=== PATIENT | female | born 1985 | race African-American/Black ===

== ENCOUNTER 2016-05-04 04:40 | Emergency (ER) | payer MEDICARE | END 2016-05-04 05:38 | disposition home or self-care (01) | LOC: D.ER 04:40 | DX: J02.9 Acute pharyngitis, unspecified (principal); J40 Bronchitis, not specified as acute or chronic; R11.10 Vomiting, unspecified; F41.9 Anxiety disorder, unspecified ==

== ENCOUNTER 2016-06-29 22:27 | Emergency (ER) | payer MEDICARE | END 2016-06-29 22:47 | disposition home or self-care (01) | LOC: D.ER 22:27 | DX: F41.0 Panic disorder [episodic paroxysmal anxiety] (principal) ==

== ENCOUNTER 2017-11-09 09:32 | Emergency (ER) | payer MEDICARE ==
[~2017-11-09] VITALS: Ht 165.1 cm; Wt 154.5 kg
[2017-11-09 09:36] VITALS: Ht 165.1 cm; Wt 154.5 kg
[2017-11-09 12:13] VITALS: BP 139/76
== END 2017-11-09 12:14 | disposition home or self-care (01) ==
LOC: D.ER 09:32
DX: F43.0 Acute stress reaction (principal)

== ENCOUNTER 2017-12-09 10:53 | Emergency (ER) | payer MEDICARE ==
[~2017-12-09] VITALS: Ht 165.1 cm; Wt 150.0 kg
[2017-12-09 11:03] VITALS: Ht 165.1 cm; Wt 150.0 kg
[2017-12-09] MEDS ORDERED: OCUFLOX 0.3 % OP5 ML LEFT EYE (14:36)
[2017-12-09] MEDS ORDERED: PREDNISONE10 MG PO (14:36)
[2017-12-09] MEDS ORDERED: AMOXICILLIN875 MG PO (14:36)
[2017-12-09 15:00] VITALS: BP 101/60
== END 2017-12-09 15:01 | disposition home or self-care (01) ==
LOC: D.ER 10:53
DX: H10.12 Acute atopic conjunctivitis, left eye (principal); F43.10 Post-traumatic stress disorder, unspecified; F41.1 Generalized anxiety disorder

== ENCOUNTER 2018-01-30 16:47 | Inpatient (IN) | payer MEDICARE ==
[~2018-01-30] VITALS: Ht 165.1 cm; Wt 65.6 kg
[~2018-01-30 16:47] MED LIST: AMOXICILLIN875 MG PO; OCUFLOX 0.3 % OP5 ML LEFT EYE; PREDNISONE10 MG PO
[2018-01-30] MEDS ORDERED: VENTOLIN HFA18 GM INH (16:51)
[2018-01-30 17:35] LABS: BASOPHILS 0.3 % (0-2); EOSINOPHILS 5.4 % (0-7); HEMATOCRIT 40.3 % (36.0-48.0); IMMATURE GRANULOCYTES 0.1 % (0-5); LYMPHOCYTES 31.1 % (15-50); MCH 27.4 pg (26.0-34.0); MCHC 32.3 g/dL (31.0-37.0); MCV 84.8 fL (80.0-100.0); MEAN PLATELET VOLUME 10.3 fL (7.4-10.4); NEUTROPHILS 58.1 % (40-80); PLATELET COUNT 261 10x3/uL (130-400); RBC 4.75 10x6/uL (4.00-5.40); RDW 15.1 % (11.5-14.5)
[2018-01-30 17:43] LABS: APTT 27.3 SECONDS (22.8-39.4); INR 0.92 (0.85-1.17); PROTIME 11.9 SECONDS (11.6-15.0)
[2018-01-30 17:58] LABS: ALBUMIN 3.5 g/dL (3.4-5.0); ALKALINE PHOSPHATASE 55 U/L (46-116); ALT (SGPT) 26 U/L (10-68); BILIRUBIN - TOTAL 0.16 mg/dL (0.2-1.3); CALC OSMOLALITY 278 mosm/kg (275-300); CALCIUM 8.2 mg/dL (8.5-10.1); CARBON DIOXIDE 28.1 mmol/L (21.0-32.0); CHLORIDE - SERUM 103 mmol/L (98-107); CREATININE - SERUM 0.7 mg/dL (0.6-1.3); GLUCOSE 115 mg/dL (74-106); POTASSIUM - SERUM 3.3 mmol/L (3.5-5.1); PROTEIN - SERUM 7.9 g/dL (6.4-8.2); SODIUM 140 mmol/L (136-145); UREA NITROGEN 9 mg/dL (7-18); eGFR NON AFRICAN AMERICAN > 90 mL/min (90-120)
[2018-01-30 18:10] LABS: CKMB 0.8 U/L (0.0-3.6); CREATINE KINASE 155 UL (21-215); PRO BNP 18 pg/mL (0-125); TROPONIN-I < 0.017 ng/mL (0.000-0.060)
[2018-01-30 19:19] VITALS: BP 155/77
[2018-01-30 22:31] VITALS: BP 148/57; Ht 165.1 cm; Wt 65.6 kg
[2018-01-31 02:01] VITALS: BP 148/57
[2018-01-31 05:42] VITALS: BP 132/73
[2018-01-31 08:02] VITALS: BP 121/83
[2018-01-31 10:49] VITALS: BP 129/76
[2018-01-31 15:42] VITALS: BP 116/73
[2018-01-31 20:00] VITALS: BP 131/70
[2018-02-01] VITALS: BP 128/82
[2018-02-01 05:23] VITALS: BP 130/63
[2018-02-01 07:09] LABS: CALC OSMOLALITY 278 mosm/kg (275-300); CALCIUM 8.9 mg/dL (8.5-10.1); CARBON DIOXIDE 21.8 mmol/L (21.0-32.0); CHLORIDE - SERUM 103 mmol/L (98-107); CREATININE - SERUM 0.8 mg/dL (0.6-1.3); GLUCOSE 190 mg/dL (74-106); POTASSIUM - SERUM 4.3 mmol/L (3.5-5.1); SODIUM 137 mmol/L (136-145); UREA NITROGEN 12 mg/dL (7-18); eGFR NON AFRICAN AMERICAN 87 mL/min (90-120)
[2018-02-01 08:33] VITALS: BP 132/81
--- NOTE | 2018-02-01 11:25 | HP ---
PATIENT: SY RODRIGUEZ V MEDICAL RECORD: [id number] ACCOUNT: [id number] LOCATION:[address] : [birth year] ADMISSION DATE: 01/30/18 PCP: No PCP HISTORY AND PHYSICAL EXAMINATION REASON FOR ADMISSION: Shortness of breath and burning in her chest pain. HISTORY OF PRESENT ILLNESS: The patient is a 32-year-old -[place] female who is a student at [employer]. She states had history of childhood asthma and usually a Proventil inhaler handles her symptoms. That has been prescribed by Dr. Grimes at [employer]. She said she felt well until a few days ago and she developed some increasing cough. Her sputum was initially clear, became thicker and drained yesterday. She has not had fever, but had a coughing episode yesterday, which she thought she could not catch her breath. She was brought by EMS to the hospital for that reason. She was evaluated in the ED, was tachycardic with a heart rate in the 160s. Chest x-rays showed question of interstitial edema versus early pneumonia and she has been admitted to the hospital. PAST HISTORY: Childhood asthma. She was hospitalized a child, but none as an adult, history of anxiety and panic syndrome, but she does not take any medications for history of depression. PAST SURGICAL HISTORY: times 1, tonsillectomy, and PE tubes in her ears. FAMILY HISTORY: Mother with diabetes. Natural father's health is unknown. SOCIAL HISTORY: Socially, she has one child. 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 HOME MEDICATIONS: Proventil HFA 1-2 puffs t.i.d. p.r.n. ALLERGIES: ADHESIVE TAPE AND HEMP OIL REVIEW OF SYSTEMS: GENERAL: Generally, denies fatigue until today. No fever. HEENT: No recent visual change, sinus congestion, sore throat, or hearing difficulty. RESPIRATORY: Increasing cough, congestion, and shortness of breath starting the last 3 days, precipitating shortness of breath and near syncope. No hemoptysis. No adult hospitalization for respiratory issues, she states. CARDIAC: No palpitation, PND, orthopnea, chest pain, or edema. GASTROINTESTINAL: No nausea, vomiting, change in stools, blood per rectum, or fatty food intolerance. Has had a colonoscopy in the past that she said was normal. GENITOURINARY: No dysuria or incontinence. GYNECOLOGIC: No abnormal vaginal bleeding. ENDOCRINE: Denies polyuria, polydipsia, heat or cold intolerance. NEUROLOGIC: No history of stroke, TIA, vascular headaches, or seizures. PSYCHIATRIC: Admits to history of panic syndrome and depression in the past, she said that she handles it with behavior modification. PHYSICAL EXAMINATION: GENERAL: Alert, obese 32-year-old black female at this time, in no acute HISTORY AND PHYSICAL [id number] MICHAEL,SY V distress. Temperature 97; heart rate is 140, now 116; respiratory rate was 19; blood pressure 132/73 with a sat of 95%. HEENT: Normocephalic. Eyes are clear. Throat mild erythema. Tonsils are absent. NECK: No adenopathy. Chest expiratory wheezes bilaterally without rales or retractions. HEART: Tachycardic without murmur. ABDOMEN: Morbidly obese, soft, nontender. EXTREMITIES: 2+ pretibial edema bilaterally. NEUROLOGICAL: Oriented to person, place, and time. Cranial nerves intact. Gait is normal. LABORATORY DATA: Labs shows a white count of 12,000, H&H of 13 and 40. ABG: pH of 7.4, pCO2 is 43.9, pO2 is 83 on room air. Potassium was low at 3.4; glucose 115, nonfasting. INR was 0.92. Influenza A and B both negative. Chest x-ray was interpreted and pulmonary vascular mildly prominent. ASSESSMENT: Exacerbation of asthma, tachycardia, obesity, history of anxiety. The patient will be admitted for pulmonary toilet, IV antibiotics. Serial chest x-ray. Further workup pending clinical course. TRANSINT:[id number] Voice Confirmation ID: [id number] DOCUMENT ID: [id number] MADISON BRADEN MD at 1125 CC: [id number] DICTATION DATE: 01/31/18726 SNATH HANDLE ASSEMBLER: 01/31/18 09 ADM IN [place] [id number] [place] [address]
[2018-02-01 12:05] VITALS: BP 124/80
[2018-02-01 15:52] VITALS: BP 119/75
[2018-02-01 20:50] VITALS: BP 154/81
[2018-02-02 01:30] VITALS: BP 132/75
[2018-02-02 06:14] VITALS: BP 130/70
[2018-02-02 08:21] VITALS: BP 134/71
[2018-02-02] MEDS ORDERED: PEPCID PO (08:53)
[2018-02-02] MEDS ORDERED: MUCINEX DM ER1 EAC1 PO (08:55)
[2018-02-02] MEDS ORDERED: ZITHROMAX250 MG PO (08:55)
[2018-02-02] MEDS ORDERED: MEDROL DOSE PACK4 MG PO (08:55)
--- NOTE | 2018-02-04 11:22 | MORECARE ---
CASE MANAGEMENT DISCHARGE SUMMARY PATIENT: SY RODRIGUEZ V UNIT: [id number] ADM DATE: 01/30/18 AGE: 32 : 83 SEX: F ROOM/BED: D.2130 AUTHOR: MAY ARANGO PHYSICIAN: REFERRING PHYSICIAN: MADISON BRADEN MD DATE OF SERVICE: 02/04/18 Discharge Plan Patient Name: SY RODRIGUEZ Facility: [facility]:[place] : 1985 Planned Disposition: Home Anticipated Discharge Date: 02/02/18 Discharge Date: 02/02/2018 Expected LOS: 3 Initial Reviewer: [email or web address] Initial Review Date: 02/04/2018 Generated: 02/04/18 12:22 pm Patient Name: SY RODRIGUEZ Page [id number] at 1122 All edits/amendments must be made on the electronic document DICTATION DATE: 02/04/18 112 CHECK PILOT: MALENA 02/04/18 1122 RPT#: [id number] DC DATE:02/02/18 STATUS: DIS IN [facility] [address] [place] [address] END OF REPORT
== END 2018-02-02 11:15 | disposition home or self-care (01) | DRG 202 ==
LOC: D.ER 16:47 → D.M2 19:51
PROVIDERS: Family Medicine; ADMIT Family Medicine
DX: J45.901 Unspecified asthma with (acute) exacerbation (principal); J18.0 Bronchopneumonia, unspecified organism; Z68.43 Body mass index [BMI] 50.0-59.9, adult; R00.0 Tachycardia, unspecified; E66.9 Obesity, unspecified; F41.9 Anxiety disorder, unspecified; I50.9 Heart failure, unspecified

== ENCOUNTER 2018-04-16 22:54 | Emergency (ER) | payer MEDICARE ==
[~2018-04-16] VITALS: Ht 165.1 cm; Wt 159.1 kg
[~2018-04-16 22:54] MED LIST changes: +MEDROL DOSE PACK4 MG PO; +MUCINEX DM ER1 EAC1 PO; +PEPCID PO; +VENTOLIN HFA18 GM INH; +ZITHROMAX250 MG PO
[2018-04-16 22:56] VITALS: BP 146/90; Ht 165.1 cm; Wt 159.1 kg
== END 2018-04-17 00:16 | disposition home or self-care (01) ==
LOC: D.ER 22:54
DX: F41.9 Anxiety disorder, unspecified (principal)